=== PATIENT | female | born 1975 | race Caucasian/White ===

== ENCOUNTER → 2021-10-02 | Day surgery (SDC) | payer OTHER, BC | END | disposition home or self-care (01) | LOC: JRADUS-SUR 10:14 | PROVIDERS: ATTEND Physician Assistant | PROC: 0HBT3ZX Excision of Right Breast, Percutaneous Approach, Diagnostic (ICD-10-PCS; principal; 2021-10-02) | DX: D24.1 Benign neoplasm of right breast (principal); N63.10 Unspecified lump in the right breast, unspecified quadrant | CPT/HCPCS: 19083; 77065-TC; 87899; A4648 ==

== ENCOUNTER 2022-05-20 02:40 | Emergency (ER) | payer BC ==
[2022-05-20 03:07] VITALS: TEMP 97.8; BMI 25.1
[2022-05-20 06:03] LABS: BASO % 0.5 % (0-2.0); EOS % 3.4 % (0-4.5); HEMATOCRIT 36.3 % (32.4-45.2); HEMOGLOBIN 11.9 GM/dL (10.7-15.3); MCH 26.9 pg (25.7-33.7); MCHC 32.8 g/dl (32.0-36.0); MEAN PLT VOLUME 8.4 fl (7.5-11.1); NEUT % 65.1 % (42.8-82.8); PLATELET COUNT 316 10^3/uL (134-434); RBC 4.42 M/mm3 (3.60-5.2); WHITE BLOOD COUNT 4.6 K/mm3 (4.0-10.0)
[2022-05-20 06:31] LABS: ALBUMIN 3.4 g/dl (3.4-5.0); BLOOD UREA NITROGEN 10.1 mg/dL (7-18); CALCIUM 8.7 mg/dL (8.5-10.1)
[2022-05-20 06:35] LABS: CREATININE 0.7 mg/dL (0.55-1.3)
[2022-05-20 06:36] LABS: BILIRUBIN,TOTAL 0.3 mg/dL (0.2-1); TOT PROT 6.6 g/dl (6.4-8.2)
[2022-05-20 06:48] VITALS: BP 135/73; PULSE 57; RESP 16
== END 2022-05-20 08:09 | disposition home or self-care (01) ==
LOC: JER 02:40
DX: F41.9 Anxiety disorder, unspecified (principal); R20.2 Paresthesia of skin
CPT/HCPCS: 36415; 80053; 84443; 84484; 85025; 93005; 93010; 99283-25